=== PATIENT | female | born 1960 | race Caucasian/White ===

== ENCOUNTER 2021-01-07 10:15 | Emergency (ER) | payer BC, OTHER ==
[~2021-01-07] VITALS: Ht 162.6 cm; Wt 59.0 kg
--- NOTE | 2021-01-07 10:28 | NUR ---
[email or web address], medical screening exam in progress
[2021-01-07] MEDS ORDERED: OXYC-133 PO (11:04)
--- NOTE | 2021-01-07 11:19 | NUR ---
Patient discharged to home in stable condition with steady gait. Written and verbal after care instructions given. Patient verbalizes understanding & compliance of instructions. Stressed follow up with your primary doctor and cancer doctor or return to ER for worsening s/s.
== END 2021-01-07 11:22 | disposition home or self-care (01) ==
LOC: ER 10:15
DX: M54.5 Low back pain (principal); G89.29 Other chronic pain; I25.10 Atherosclerotic heart disease of native coronary artery without angina pectoris; Z95.5 Presence of coronary angioplasty implant and graft
CPT/HCPCS: A4663